=== PATIENT | male | born 1950 | race Caucasian/White ===

== ENCOUNTER 2020-08-22 14:55 | Emergency (ER) | payer OTHER, SELFPAY ==
--- NOTE | 2020-08-22 15:40 | RAD ---
EXAM: 3 views of the left foot HISTORY: Left foot pain and bruising COMPARISON: 03/19/2014 FINDINGS: 3 views of the left foot shows a spiral fracture of the distal fifth metatarsal. Mild overl siri soft tissue swelling is seen. No degenerative changes are present. IMPRESSION: Left fifth metatarsal fracture
== END 2020-08-22 16:30 | disposition home or self-care (01) ==
LOC: ERS 14:55
DX: S92.355A Nondisplaced fracture of fifth metatarsal bone, left foot, initial encounter for closed fracture (principal); I10 Essential (primary) hypertension

== ENCOUNTER 2021-02-08 09:16 | Inpatient (IN) | payer MEDICARE, BC ==
[2021-02-08] MEDS ORDERED: Labetalol HCl 100 MG/20 ML VIAL ONE (09:58)
[2021-02-08] MEDS ORDERED: Aspirin Chewable 81 MG TAB ONE (09:58)
[2021-02-08 10:11] LABS: #Basophils 0.1 thou/uL (0.0-0.2); #Eosinphils 0.2 thou/uL (0.0-0.7); #Lymphocytes 2.1 thou/uL (1.20-3.40); #Monocytes 0.4 thou/uL (0.11-0.59); #Neutrophils 2.8 thou/uL (1.40-6.50); %Eosinophils 4.3 % (0.0-10.0); %Lymphocytes 37.9 % (21.0-51.0); %Monocytes 7.5 % (0.0-10.0); %Neutrophils 49.4 % (42.0-75.0); Hemoglobin 14.7 g/dL (14.0-18.0); Mean Corpuscular HGB CONC 34.1 g/dL (32.0-36.0); Mean Corpuscular Hemoglobin 35.1 pg (27.0-31.0); Mean Platelet Volume 8.8 fL (7.4-10.4); Platelet Count 175 thou/uL (130-400); RBC Distribution Width 12.6 % (11.5-14.5); Red Blood Cell (RBC) Count 4.19 mill/uL (4.70-6.10); White Blood Cell (WBC) Count 5.7 thou/uL (4.8-10.8)
[2021-02-08 10:16] LABS: PTT 30.5 sec (22.9-36.1); Prothrombin Time 13.4 sec (12.0-14.7)
[2021-02-08 10:41] LABS: ALT (SGPT) 9 U/L (8-55); AST (SGOT) 24 U/L (5-34); Albumin 3.9 g/dL (3.4-4.8); Alkaline Phosphatase 105 U/L (40-110); Anion Gap 19 mmol/L (10-20); BUN (Urea Nitrogen) 21 mg/dL (8.4-25.7); Bilirubin, Total 0.5 mg/dL (0.2-1.2); Calc. Creatinine Clearance 0 mL/min (70-130); Carbon Dioxide 18 mmol/L (23-31); Chloride 106 mmol/L (98-107); Globulin 3.2 g/dL (2.4-3.5); Glucose 75 mg/dL (80-115); Magnesium 2.1 mg/dL (1.6-2.6); Potassium 5.2 mmol/L (3.5-5.1); Protein, Total 7.1 g/dL (5.8-8.1); Sodium 138 mmol/L (136-145)
[2021-02-08] MEDS ORDERED: Ondansetron PF 4 MG/2 ML Vial IVP PRN (11:19)
[2021-02-08] MEDS ORDERED: Acetaminophen 325 MG TAB PO PRN (11:19)
[2021-02-08] MEDS ORDERED: Iopamidol-370 76% 500 ML 1 ML ONE (11:43)
[2021-02-08 13:00] VITALS: BMI 25.0
[2021-02-08 13:58] LABS: Troponin I 0.024 ng/mL (< 0.028)
[2021-02-08 15:42] LABS: Troponin I 0.017 ng/mL (< 0.028)
[2021-02-08] MEDS ORDERED: Melatonin 3 MG TAB PO PRN (22:44)
[2021-02-08] MEDS: Famotidine 20 MG TAB PO SCH (22:56)
[2021-02-08] MEDS: Atorvastatin Calcium 40 MG TAB PO SCH (22:56)
[2021-02-09 05:39] LABS: #Eosinphils 0.2 thou/uL (0.0-0.7); #Lymphocytes 1.6 thou/uL (1.20-3.40); #Monocytes 0.5 thou/uL (0.11-0.59); #Neutrophils 4.4 thou/uL (1.40-6.50); %Basophils 0.7 % (0.0-1.0); %Eosinophils 2.7 % (0.0-10.0); %Lymphocytes 23.4 % (21.0-51.0); %Monocytes 7.3 % (0.0-10.0); %Neutrophils 65.8 % (42.0-75.0); Hemoglobin 14.2 g/dL (14.0-18.0); Mean Corpuscular HGB CONC 33.7 g/dL (32.0-36.0); Mean Corpuscular Hemoglobin 34.5 pg (27.0-31.0); Platelet Count 151 thou/uL (130-400); RBC Distribution Width 12.5 % (11.5-14.5); Red Blood Cell (RBC) Count 4.11 mill/uL (4.70-6.10); White Blood Cell (WBC) Count 6.6 thou/uL (4.8-10.8)
[2021-02-09 06:06] LABS: ALT (SGPT) 9 U/L (8-55); AST (SGOT) 15 U/L (5-34); Albumin 3.8 g/dL (3.4-4.8); Alkaline Phosphatase 104 U/L (40-110); Anion Gap 15 mmol/L (10-20); BUN (Urea Nitrogen) 19 mg/dL (8.4-25.7); Bilirubin, Total 0.7 mg/dL (0.2-1.2); Calc. Creatinine Clearance 38 mL/min (70-130); Calcium 9.4 mg/dL (7.8-10.44); Carbon Dioxide 23 mmol/L (23-31); Cardiac Risk 2.9 (Less than 4.5); Chloride 105 mmol/L (98-107); Cholesterol 153 mg/dl (< 200 Desired); Globulin 2.5 g/dL (2.4-3.5); Glucose 93 mg/dL (80-115); HDL Cholesterol 52 mg/dL (>60 Neg Risk); LDL Cholesterol, Calculated 80 mg/dL; Potassium 4.2 mmol/L (3.5-5.1); Protein, Total 6.3 g/dL (5.8-8.1); Sodium 139 mmol/L (136-145); Triglycerides 104 mg/dL (Less than 150)
[2021-02-09] MEDS: Aspirin 81 mg Enteric Coated Tablet PO SCH (08:27)
[2021-02-09] MEDS: Famotidine 20 MG TAB PO SCH ×2 (08:29→21:04)
[2021-02-09] MEDS: Labetalol HCl 100 MG/20 ML VIAL SLOW IVP PRN ×3 (08:32→13:43)
[2021-02-09] MEDS: Enoxaparin Sodium 40 MG/0.4 ML SYRINGE SC SCH (08:35)
[2021-02-09] MEDS ORDERED: FLU VACC QS2020-21(65YR UP)/PF 240 MCG/0.7 ML SYRINGE IM ONE (09:00)
[2021-02-09] MEDS ORDERED: Enoxaparin Sodium 30 MG/0.3 ML SYRINGE SC SCH (09:30)
[2021-02-09] MEDS: hydrALAZINE 20 MG/ML VIAL SLOW IVP PRN (09:53)
[2021-02-09 09:59] LABS: SARS-CoV-2 PCR by NAA Not Detected (NotDetected)
[2021-02-09 13:14] LABS: Bacteria/HPF None Seen HPF (None Seen); Bilirubin Negative (Negative); Blood, Urine Trace (Negative); Clarity Clear (Clear); Glucose, Urine (Dipstick) Normal (Negative); Ketone, Urine Trace mg/dL (Negative); Leukocyte Negative Leu/uL (Negative); Nitrite Negative (Negative); Protein, Urine (Dipstick) 30 mg/dL (Neg-Trace); RBC/HPF 0-3 HPF (0-3); Specific Gravity, Urine 1.026 (1.002-1.036); Squamous Epithelial 0-3 HPF (0-3); Urobilinogen Normal mg/dL (Less than 2); WBC/HPF 0-3 HPF (0-3); pH, Urine 6.5 (5.0-9.0)
[2021-02-09 13:33] LABS: Urine Culture Reflex No No
[2021-02-09] MEDS ORDERED: hydrALAZINE 25 MG TAB PO SCH (16:15)
[2021-02-09] MEDS: Atorvastatin Calcium 40 MG TAB PO SCH (21:03)
[2021-02-09] MEDS: hydrALAZINE 25 MG TAB PO SCH (21:03)
[2021-02-10] MEDS: Labetalol HCl 100 MG/20 ML VIAL SLOW IVP PRN ×5 (02:55→21:16)
[2021-02-10] MEDS: Famotidine 20 MG TAB PO SCH ×2 (08:07→21:14)
[2021-02-10] MEDS: hydrALAZINE 25 MG TAB PO SCH ×3 (08:08→21:15)
[2021-02-10] MEDS ORDERED: Lidocaine 1% w/Epinephrine 1:100K 20 ML VIAL ONE (08:49)
[2021-02-10] MEDS: Aspirin 81 mg Enteric Coated Tablet PO SCH (09:57)
[2021-02-10] MEDS: HYDROcodone/Acetaminophen 5/325 mg Tablet PO PRN (12:32)
[2021-02-10] MEDS: Enoxaparin Sodium 40 MG/0.4 ML SYRINGE SC SCH (17:08)
[2021-02-10] MEDS ORDERED: Enoxaparin Sodium 40 MG/0.4 ML SYRINGE SC SCH (19:45)
[2021-02-10] MEDS ORDERED: Enoxaparin Sodium 80 MG/0.8 ML SYRINGE SC SCH ×2 (20:00→21:00)
[2021-02-10] MEDS: Melatonin 3 MG TAB PO PRN (21:15)
[2021-02-10] MEDS: Atorvastatin Calcium 40 MG TAB PO SCH (21:15)
[2021-02-11] MEDS: Enoxaparin Sodium 80 MG/0.8 ML SYRINGE SC SCH ×2 (09:02→20:28)
[2021-02-11] MEDS: Famotidine 20 MG TAB PO SCH ×2 (09:02→20:27)
[2021-02-11] MEDS: hydrALAZINE 25 MG TAB PO SCH ×3 (09:02→20:27)
[2021-02-11] MEDS: Aspirin 81 mg Enteric Coated Tablet PO SCH (09:02)
[2021-02-11] MEDS ORDERED: hydrALAZINE 25 MG TAB PO SCH (10:00)
[2021-02-11] MEDS: Bisacodyl 5 MG TAB PO PRN (15:17)
[2021-02-11 18:59] LABS: Anion Gap 18 mmol/L (10-20); BUN (Urea Nitrogen) 28 mg/dL (8.4-25.7); Calc. Creatinine Clearance 31 mL/min (70-130); Calcium 9.6 mg/dL (7.8-10.44); Carbon Dioxide 22 mmol/L (23-31); Chloride 105 mmol/L (98-107); Glucose 155 mg/dL (80-115); Potassium 4.7 mmol/L (3.5-5.1); Sodium 140 mmol/L (136-145)
[2021-02-11] MEDS: Atorvastatin Calcium 40 MG TAB PO SCH (20:27)
[2021-02-11] MEDS: Melatonin 3 MG TAB PO PRN (20:27)
[2021-02-11] MEDS: HYDROcodone/Acetaminophen 5/325 mg Tablet PO PRN (20:28)
[2021-02-11] MEDS: Labetalol HCl 100 MG/20 ML VIAL SLOW IVP PRN (23:54)
[2021-02-11] MEDS ORDERED: Labetalol HCl 100 MG/20 ML VIAL ONE (23:58)
[2021-02-12] MEDS: HYDROcodone/Acetaminophen 5/325 mg Tablet PO PRN ×2 (06:12→20:39)
[2021-02-12] MEDS: hydrALAZINE 20 MG/ML VIAL SLOW IVP PRN (06:13)
[2021-02-12] MEDS ORDERED: Lisinopril 5 MG TAB PO SCH ×2 (09:00→10:30)
[2021-02-12] MEDS: Aspirin 81 mg Enteric Coated Tablet PO SCH (09:11)
[2021-02-12] MEDS: hydrALAZINE 25 MG TAB PO SCH ×3 (09:12→20:37)
[2021-02-12] MEDS: Famotidine 20 MG TAB PO SCH (09:14)
[2021-02-12] MEDS: Bisacodyl 5 MG TAB PO PRN (09:15)
[2021-02-12] MEDS: Enoxaparin Sodium 80 MG/0.8 ML SYRINGE SC SCH (09:17)
[2021-02-12] MEDS ORDERED: Lisinopril 10 MG TAB PO SCH ×2 (09:45→10:06)
[2021-02-12] MEDS: Cholecalciferol 1,000 UNITS (25 MCG) TAB PO SCH (10:41)
[2021-02-12 16:42] LABS: Anion Gap 14 mmol/L (10-20); BUN (Urea Nitrogen) 32 mg/dL (8.4-25.7); Calc. Creatinine Clearance 28 mL/min (70-130); Calcium 9.6 mg/dL (7.8-10.44); Carbon Dioxide 28 mmol/L (23-31); Chloride 101 mmol/L (98-107); Glucose 92 mg/dL (80-115); Potassium 4.5 mmol/L (3.5-5.1); Sodium 138 mmol/L (136-145)
[2021-02-12] MEDS: Apixaban 5 MG TAB PO SCH (20:38)
[2021-02-12] MEDS: Melatonin 3 MG TAB PO PRN (20:38)
[2021-02-12] MEDS: Atorvastatin Calcium 40 MG TAB PO SCH (20:39)
[2021-02-13] MEDS ORDERED: Lisinopril 10 MG TAB PO SCH (09:00)
[2021-02-13] MEDS ORDERED: Enoxaparin Sodium 80 MG/0.8 ML SYRINGE SC SCH (09:00)
[2021-02-13] MEDS: Apixaban 5 MG TAB PO SCH ×2 (09:12→20:41)
[2021-02-13] MEDS: Famotidine 20 MG TAB PO SCH (09:13)
[2021-02-13] MEDS: Cholecalciferol 1,000 UNITS (25 MCG) TAB PO SCH (09:13)
[2021-02-13] MEDS: hydrALAZINE 25 MG TAB PO SCH ×3 (09:13→20:42)
[2021-02-13] MEDS: Aspirin 81 mg Enteric Coated Tablet PO SCH (09:29)
[2021-02-13 10:53] LABS: Hemoglobin 15.4 g/dL (14.0-18.0); Mean Corpuscular HGB CONC 33.5 g/dL (32.0-36.0); Mean Corpuscular Hemoglobin 35.1 pg (27.0-31.0); Mean Platelet Volume 8.5 fL (7.4-10.4); Platelet Count 139 thou/uL (130-400); RBC Distribution Width 13.2 % (11.5-14.5); Red Blood Cell (RBC) Count 4.38 mill/uL (4.70-6.10)
[2021-02-13 11:06] LABS: Anion Gap 16 mmol/L (10-20); BUN (Urea Nitrogen) 37 mg/dL (8.4-25.7); Calc. Creatinine Clearance 23 mL/min (70-130); Calcium 9.6 mg/dL (7.8-10.44); Carbon Dioxide 23 mmol/L (23-31); Chloride 103 mmol/L (98-107); Glucose 112 mg/dL (80-115); Potassium 4.4 mmol/L (3.5-5.1); Sodium 138 mmol/L (136-145)
[2021-02-13 11:32] LABS: Thyroid Stimulating Hormone 1.9977 uIU/mL (0.35-4.94)
[2021-02-13] MEDS: Sodium Chloride 0.9% 1,000 ML IV SCH (15:50)
[2021-02-13] MEDS: Atorvastatin Calcium 40 MG TAB PO SCH (20:41)
[2021-02-13] MEDS: Melatonin 3 MG TAB PO PRN (20:42)
[2021-02-13] MEDS: HYDROcodone/Acetaminophen 5/325 mg Tablet PO PRN (20:42)
[2021-02-13] MEDS ORDERED: Lorazepam 2 MG/ML VIAL SLOW IVP SCH (21:45)
[2021-02-14] MEDS: Sodium Chloride 0.9% 1,000 ML IV SCH ×4 (02:50→23:31)
[2021-02-14 05:56] LABS: Anion Gap 13 mmol/L (10-20); BUN (Urea Nitrogen) 40 mg/dL (8.4-25.7); Calc. Creatinine Clearance 22 mL/min (70-130); Calcium 8.9 mg/dL (7.8-10.44); Carbon Dioxide 24 mmol/L (23-31); Chloride 106 mmol/L (98-107); Glucose 99 mg/dL (80-115); Potassium 4.1 mmol/L (3.5-5.1); Sodium 139 mmol/L (136-145)
[2021-02-14] MEDS: Cholecalciferol 1,000 UNITS (25 MCG) TAB PO SCH (08:18)
[2021-02-14] MEDS: Amlodipine 10 MG TAB PO SCH (08:18)
[2021-02-14] MEDS: Aspirin 81 mg Enteric Coated Tablet PO SCH (08:18)
[2021-02-14] MEDS: Famotidine 20 MG TAB PO SCH (08:18)
[2021-02-14] MEDS: hydrALAZINE 25 MG TAB PO SCH ×3 (08:18→20:36)
[2021-02-14] MEDS: Apixaban 5 MG TAB PO SCH ×2 (08:18→20:37)
[2021-02-14] MEDS ORDERED: Folic Acid 1 MG TAB PO SCH (17:00)
[2021-02-14 18:47] LABS: Creatinine, Urine 70.57 mg/dL (63-166)
[2021-02-14] MEDS: Atorvastatin Calcium 40 MG TAB PO SCH (20:37)
[2021-02-14] MEDS: Melatonin 3 MG TAB PO PRN (20:37)
[2021-02-15 05:07] LABS: Eosinophils 2 % (0-10); Hemoglobin 13.4 g/dL (14.0-18.0); Lymphocytes 28 % (21-51); MDiff Complete? YES; Mean Corpuscular HGB CONC 31.7 g/dL (32.0-36.0); Mean Corpuscular Hemoglobin 33.1 pg (27.0-31.0); Mean Platelet Volume 8.4 fL (7.4-10.4); Monocytes 16 % (0-10); Neutrophil 54 % (42-75); Platelet Count 149 thou/uL (130-400); Platelet Morphology Comment Appears Adequate; RBC Distribution Width 12.9 % (11.5-14.5); Red Blood Cell (RBC) Count 4.05 mill/uL (4.70-6.10); White Blood Cell (WBC) Count 5.9 thou/uL (4.8-10.8)
[2021-02-15 05:18] LABS: Anion Gap 14 mmol/L (10-20); BUN (Urea Nitrogen) 30 mg/dL (8.4-25.7); Calc. Creatinine Clearance 32 mL/min (70-130); Calcium 8.5 mg/dL (7.8-10.44); Carbon Dioxide 21 mmol/L (23-31); Chloride 111 mmol/L (98-107); Glucose 78 mg/dL (80-115); Potassium 4.6 mmol/L (3.5-5.1); Sodium 141 mmol/L (136-145)
[2021-02-15] MEDS: Sodium Chloride 0.9% 1,000 ML IV SCH (08:01)
[2021-02-15] MEDS: Aspirin 81 mg Enteric Coated Tablet PO SCH (10:17)
[2021-02-15] MEDS: Famotidine 20 MG TAB PO SCH (10:18)
[2021-02-15] MEDS: Amlodipine 10 MG TAB PO SCH (10:18)
[2021-02-15] MEDS: Folic Acid 1 MG TAB PO SCH (10:18)
[2021-02-15] MEDS: Cholecalciferol 1,000 UNITS (25 MCG) TAB PO SCH (10:18)
[2021-02-15] MEDS: Bisacodyl 5 MG TAB PO PRN (10:18)
[2021-02-15] MEDS: Apixaban 5 MG TAB PO SCH ×2 (10:19→21:34)
[2021-02-15] MEDS: hydrALAZINE 25 MG TAB PO SCH ×3 (10:20→21:34)
[2021-02-15] MEDS ORDERED: Sodium Chloride 0.9% 1,000 ML IV SCH (11:21)
[2021-02-15] MEDS ORDERED: Bisacodyl 10 MG SUPP PR PRN (17:41)
[2021-02-15] MEDS ORDERED: Fleet Enema 133 ML BOT PR SCH (17:45)
[2021-02-15] MEDS: cloNIDine 0.1 MG TAB PO SCH (21:33)
[2021-02-15] MEDS: Melatonin 3 MG TAB PO PRN (21:33)
[2021-02-15] MEDS: Atorvastatin Calcium 40 MG TAB PO SCH (21:34)
[2021-02-16 05:00] LABS: #Basophils 0.1 thou/uL (0.0-0.2); #Eosinphils 0.3 thou/uL (0.0-0.7); #Lymphocytes 1.5 thou/uL (1.20-3.40); #Monocytes 0.6 thou/uL (0.11-0.59); #Neutrophils 3.1 thou/uL (1.40-6.50); %Eosinophils 4.6 % (0.0-10.0); %Lymphocytes 27.5 % (21.0-51.0); %Monocytes 10.2 % (0.0-10.0); %Neutrophils 56.7 % (42.0-75.0); Hemoglobin 13.5 g/dL (14.0-18.0); Mean Corpuscular HGB CONC 33.7 g/dL (32.0-36.0); Mean Corpuscular Hemoglobin 35.1 pg (27.0-31.0); Mean Platelet Volume 8.1 fL (7.4-10.4); Platelet Count 150 thou/uL (130-400); RBC Distribution Width 12.6 % (11.5-14.5); Red Blood Cell (RBC) Count 3.85 mill/uL (4.70-6.10); White Blood Cell (WBC) Count 5.5 thou/uL (4.8-10.8)
[2021-02-16 05:28] LABS: Anion Gap 11 mmol/L (10-20); BUN (Urea Nitrogen) 28 mg/dL (8.4-25.7); Calc. Creatinine Clearance 37 mL/min (70-130); Calcium 8.7 mg/dL (7.8-10.44); Carbon Dioxide 22 mmol/L (23-31); Chloride 110 mmol/L (98-107); Glucose 90 mg/dL (80-115); Potassium 3.9 mmol/L (3.5-5.1); Sodium 139 mmol/L (136-145)
[2021-02-16] MEDS: hydrALAZINE 25 MG TAB PO SCH ×3 (09:54→21:48)
[2021-02-16] MEDS: Apixaban 5 MG TAB PO SCH ×2 (09:54→21:45)
[2021-02-16] MEDS: Folic Acid 1 MG TAB PO SCH (09:55)
[2021-02-16] MEDS: cloNIDine 0.1 MG TAB PO SCH ×2 (09:55→21:47)
[2021-02-16] MEDS: Famotidine 20 MG TAB PO SCH (09:55)
[2021-02-16] MEDS: Cholecalciferol 1,000 UNITS (25 MCG) TAB PO SCH (09:55)
[2021-02-16] MEDS: Aspirin 81 mg Enteric Coated Tablet PO SCH (09:56)
[2021-02-16] MEDS: Amlodipine 10 MG TAB PO SCH (09:57)
[2021-02-16] MEDS: Melatonin 3 MG TAB PO PRN (21:45)
[2021-02-16] MEDS: Atorvastatin Calcium 40 MG TAB PO SCH (21:45)
[2021-02-17 05:13] LABS: Anion Gap 14 mmol/L (10-20); BUN (Urea Nitrogen) 30 mg/dL (8.4-25.7); Calc. Creatinine Clearance 35 mL/min (70-130); Calcium 8.5 mg/dL (7.8-10.44); Carbon Dioxide 21 mmol/L (23-31); Chloride 109 mmol/L (98-107); Glucose 82 mg/dL (80-115); Potassium 4.1 mmol/L (3.5-5.1); Sodium 140 mmol/L (136-145)
[2021-02-17] MEDS: cloNIDine 0.1 MG TAB PO SCH (09:36)
[2021-02-17] MEDS: Apixaban 5 MG TAB PO SCH (09:36)
[2021-02-17] MEDS: hydrALAZINE 25 MG TAB PO SCH ×2 (09:36→15:03)
[2021-02-17] MEDS: Amlodipine 10 MG TAB PO SCH (09:36)
[2021-02-17] MEDS: Aspirin 81 mg Enteric Coated Tablet PO SCH (09:38)
[2021-02-17] MEDS: Folic Acid 1 MG TAB PO SCH (09:38)
[2021-02-17] MEDS: Famotidine 20 MG TAB PO SCH (09:38)
[2021-02-17] MEDS: Cholecalciferol 1,000 UNITS (25 MCG) TAB PO SCH (09:38)
[2021-02-17 15:48] VITALS: TEMP 98.5
[2021-02-17 16:29] VITALS: BP 155/80
== END 2021-02-17 17:52 | DRG 40 ==
LOC: ERS 09:16 → 2SE 11:08
PROVIDERS: ADMIT Family Medicine; ATTEND Internal Medicine
PROC: 0JH632Z Insertion of Monitoring Device into Chest Subcutaneous Tissue and Fascia, Percutaneous Approach (ICD-10-PCS; principal; 2021-02-10)
PROC: 4A12X4Z Monitoring of Cardiac Electrical Activity, External Approach (ICD-10-PCS; 2021-02-10)
DX: I63.81 Other cerebral infarction due to occlusion or stenosis of small artery (principal); G93.41 Metabolic encephalopathy; I16.1 Hypertensive emergency; G81.91 Hemiplegia, unspecified affecting right dominant side; N17.9 Acute kidney failure, unspecified; Z23 Encounter for immunization; Z20.822 Contact with and (suspected) exposure to COVID-19; R29.707 NIHSS score 7; E78.5 Hyperlipidemia, unspecified; R47.01 Aphasia; I65.21 Occlusion and stenosis of right carotid artery; I16.0 Hypertensive urgency; N18.30 Chronic kidney disease, stage 3 unspecified; I12.9 Hypertensive chronic kidney disease with stage 1 through stage 4 chronic kidney disease, or unspecified chronic kidney disease; G93.89 Other specified disorders of brain; M19.90 Unspecified osteoarthritis, unspecified site; I70.202 Unspecified atherosclerosis of native arteries of extremities, left leg; E55.9 Vitamin D deficiency, unspecified; Z79.899 Other long term (current) drug therapy; Z79.82 Long term (current) use of aspirin; Z94.7 Corneal transplant status
CPT/HCPCS: 36415; 36416; 70450; 70496; 70498; 70551; 71045; 76770; 80048; 80053; 80061; 81001; 82306; 82570; 82607; 82746; 83735; 84300; 84443; 84484; 85007; 85025; 85027; 85060; 85610; 85730; 87635; 90471; 90662; 93005; 93306; 95712; 95819; 95957; 96374; G0008; J0360; J1650; J2060; Q9967; U0003; U0005

== ENCOUNTER 2021-02-20 10:25 | Inpatient (IN) | payer MEDICARE, BC ==
[2021-02-20 10:44] LABS: #Basophils 0.1 thou/uL (0.0-0.2); #Eosinphils 0.2 thou/uL (0.0-0.7); #Lymphocytes 1.8 thou/uL (1.20-3.40); #Monocytes 0.7 thou/uL (0.11-0.59); #Neutrophils 4.2 thou/uL (1.40-6.50); %Basophils 0.9 % (0.0-1.0); %Eosinophils 3.5 % (0.0-10.0); %Lymphocytes 25.8 % (21.0-51.0); %Monocytes 9.5 % (0.0-10.0); %Neutrophils 60.2 % (42.0-75.0); Hemoglobin 14.5 g/dL (14.0-18.0); Mean Corpuscular HGB CONC 33.2 g/dL (32.0-36.0); Mean Corpuscular Hemoglobin 33.9 pg (27.0-31.0); Mean Platelet Volume 7.9 fL (7.4-10.4); Platelet Count 238 thou/uL (130-400); RBC Distribution Width 12.6 % (11.5-14.5); Red Blood Cell (RBC) Count 4.27 mill/uL (4.70-6.10); White Blood Cell (WBC) Count 6.9 thou/uL (4.8-10.8)
[2021-02-20 10:52] LABS: INR-International Normal Ratio 1.3; PTT 37.6 sec (22.9-36.1); Prothrombin Time 15.9 sec (12.0-14.7)
[2021-02-20 11:03] LABS: ALT (SGPT) 15 U/L (8-55); AST (SGOT) 19 U/L (5-34); Albumin 3.8 g/dL (3.4-4.8); Alkaline Phosphatase 111 U/L (40-110); Anion Gap 12 mmol/L (10-20); BUN (Urea Nitrogen) 32 mg/dL (8.4-25.7); Bilirubin, Total 0.5 mg/dL (0.2-1.2); CK (CPK) 69 U/L (30-200); Calc. Creatinine Clearance 0 mL/min (70-130); Calcium 9.6 mg/dL (7.8-10.44); Carbon Dioxide 26 mmol/L (23-31); Chloride 104 mmol/L (98-107); Globulin 2.8 g/dL (2.4-3.5); Glucose 99 mg/dL (80-115); Potassium 4.4 mmol/L (3.5-5.1); Protein, Total 6.6 g/dL (5.8-8.1); Sodium 138 mmol/L (136-145)
[2021-02-20] MEDS ORDERED: Iopamidol-370 76% 500 ML 1 ML ONE (14:22)
[2021-02-20] MEDS ORDERED: Aspirin 300 MG Suppository ONE (14:25)
[2021-02-20] MEDS: Sodium Chloride 0.9% 1,000 ML IV SCH ×2 (17:54→22:42)
[2021-02-20] MEDS ORDERED: Non-Formulary Item 1 EACH (Rosuvastatin Calcium [Crestor] 40 MG Tablet) PO SCH (21:00)
[2021-02-20 21:52] VITALS: BMI 21.0
[2021-02-20] MEDS: Apixaban 5 MG TAB PO SCH (22:09)
[2021-02-20] MEDS: Rosuvastatin 20 MG TAB PO SCH (22:10)
[2021-02-20 22:37] LABS: SARS-CoV-2 PCR by NAA Not Detected (NotDetected)
[2021-02-21 05:45] LABS: #Basophils 0.1 thou/uL (0.0-0.2); #Eosinphils 0.3 thou/uL (0.0-0.7); #Lymphocytes 1.6 thou/uL (1.20-3.40); #Monocytes 0.7 thou/uL (0.11-0.59); #Neutrophils 4.8 thou/uL (1.40-6.50); %Basophils 1.2 % (0.0-1.0); %Eosinophils 3.9 % (0.0-10.0); %Lymphocytes 21.6 % (21.0-51.0); %Monocytes 9.2 % (0.0-10.0); %Neutrophils 64.2 % (42.0-75.0); Mean Corpuscular HGB CONC 33.9 g/dL (32.0-36.0); Mean Corpuscular Hemoglobin 34.3 pg (27.0-31.0); Mean Platelet Volume 8.1 fL (7.4-10.4); Platelet Count 250 thou/uL (130-400); RBC Distribution Width 12.6 % (11.5-14.5); Red Blood Cell (RBC) Count 4.38 mill/uL (4.70-6.10); White Blood Cell (WBC) Count 7.4 thou/uL (4.8-10.8)
[2021-02-21 06:02] LABS: Anion Gap 16 mmol/L (10-20); BUN (Urea Nitrogen) 32 mg/dL (8.4-25.7); Calc. Creatinine Clearance 32 mL/min (70-130); Calcium 9.4 mg/dL (7.8-10.44); Carbon Dioxide 21 mmol/L (23-31); Cardiac Risk 4.9 (Less than 4.5); Chloride 106 mmol/L (98-107); Cholesterol 136 mg/dl (< 200 Desired); Glucose 74 mg/dL (80-115); HDL Cholesterol 28 mg/dL (>60 Neg Risk); LDL Cholesterol, Calculated 81 mg/dL; Sodium 139 mmol/L (136-145); Triglycerides 134 mg/dL (Less than 150)
[2021-02-21] MEDS ORDERED: Aspirin 81 mg Enteric Coated Tablet PO SCH ×2 (09:00)
[2021-02-21] MEDS: Cholecalciferol 1,000 UNITS (25 MCG) TAB PO SCH (12:36)
[2021-02-21] MEDS: Apixaban 5 MG TAB PO SCH (12:36)
[2021-02-21] MEDS: Cyanocobalamin (Vitamin B-12) 1,000 MCG TAB PO SCH (12:36)
[2021-02-21] MEDS: hydrALAZINE 25 MG TAB PO SCH ×2 (14:52→19:10)
[2021-02-21] MEDS: hydrALAZINE 20 MG/ML VIAL SLOW IVP PRN ×2 (15:14→20:33)
[2021-02-21] MEDS ORDERED: Sodium Chloride 0.9% 1,000 ML IV SCH ×2 (15:37→19:41)
[2021-02-21] MEDS: Sodium Chloride 0.9% 1,000 ML IV SCH (15:43)
[2021-02-21] MEDS ORDERED: Aspirin 300 MG Suppository PR SCH (16:15)
[2021-02-21] MEDS: Labetalol HCl 100 MG/20 ML VIAL SLOW IVP PRN (18:17)
[2021-02-21] MEDS: Rosuvastatin 20 MG TAB PO SCH (19:10)
[2021-02-21] MEDS ORDERED: Dextrose 5 %-0.45 % NaCl 1,000 ML IV SCH (23:45)
[2021-02-21] MEDS ORDERED: Labetalol HCl 100 MG/20 ML VIAL SLOW IVP SCH (23:45)
[2021-02-22] MEDS: hydrALAZINE 20 MG/ML VIAL SLOW IVP PRN (02:03)
[2021-02-22] MEDS: Labetalol HCl 100 MG/20 ML VIAL SLOW IVP PRN ×2 (04:14→12:02)
[2021-02-22 05:05] LABS: #Eosinphils 0.2 thou/uL (0.0-0.7); #Lymphocytes 1.2 thou/uL (1.20-3.40); #Monocytes 0.8 thou/uL (0.11-0.59); #Neutrophils 5.6 thou/uL (1.40-6.50); %Basophils 0.6 % (0.0-1.0); %Eosinophils 2.4 % (0.0-10.0); %Lymphocytes 15.8 % (21.0-51.0); %Monocytes 9.6 % (0.0-10.0); %Neutrophils 71.6 % (42.0-75.0); Hemoglobin 15.5 g/dL (14.0-18.0); Mean Corpuscular HGB CONC 34.5 g/dL (32.0-36.0); Mean Corpuscular Hemoglobin 34.8 pg (27.0-31.0); Mean Platelet Volume 7.6 fL (7.4-10.4); Platelet Count 252 thou/uL (130-400); RBC Distribution Width 12.5 % (11.5-14.5); Red Blood Cell (RBC) Count 4.44 mill/uL (4.70-6.10); White Blood Cell (WBC) Count 7.9 thou/uL (4.8-10.8)
[2021-02-22 05:11] LABS: INR-International Normal Ratio 1.2; PTT 37.4 sec (22.9-36.1)
[2021-02-22 05:15] LABS: Anion Gap 20 mmol/L (10-20); BUN (Urea Nitrogen) 36 mg/dL (8.4-25.7); Calc. Creatinine Clearance 26 mL/min (70-130); Calcium 9.4 mg/dL (7.8-10.44); Carbon Dioxide 16 mmol/L (23-31); Chloride 109 mmol/L (98-107); Glucose 123 mg/dL (80-115); Potassium 4.2 mmol/L (3.5-5.1); Sodium 141 mmol/L (136-145)
[2021-02-22] MEDS: Aspirin 300 MG Suppository PR SCH (08:35)
[2021-02-22] MEDS: Cyanocobalamin (Vitamin B-12) 1,000 MCG TAB PO SCH ×3 (09:28→09:43)
[2021-02-22] MEDS: Cholecalciferol 1,000 UNITS (25 MCG) TAB PO SCH ×3 (09:28→09:42)
[2021-02-22] MEDS: hydrALAZINE 25 MG TAB PO SCH ×3 (09:29→09:41)
[2021-02-22] MEDS ORDERED: D5 1/2 NS w/40 mEq KCL 1,000 ML IV SCH (12:45)
[2021-02-22] MEDS: hydrALAZINE 20 MG/ML VIAL SLOW IVP SCH ×3 (13:27→20:43)
[2021-02-22] MEDS: D5 1/2 NS w/40 mEq KCL 1,000 ML IV SCH (15:25)
[2021-02-22] MEDS: Rosuvastatin 20 MG TAB PO SCH (20:44)
[2021-02-23] MEDS: Labetalol HCl 100 MG/20 ML VIAL SLOW IVP PRN ×2 (00:22→18:22)
[2021-02-23] MEDS: hydrALAZINE 20 MG/ML VIAL SLOW IVP SCH ×6 (00:48→20:35)
[2021-02-23] MEDS: D5 1/2 NS w/40 mEq KCL 1,000 ML IV SCH (03:41)
[2021-02-23 04:59] LABS: #Basophils 0.1 thou/uL (0.0-0.2); #Eosinphils 0.2 thou/uL (0.0-0.7); #Lymphocytes 1.2 thou/uL (1.20-3.40); #Monocytes 0.8 thou/uL (0.11-0.59); #Neutrophils 5.8 thou/uL (1.40-6.50); %Basophils 0.7 % (0.0-1.0); %Eosinophils 2.1 % (0.0-10.0); %Lymphocytes 14.6 % (21.0-51.0); %Monocytes 9.9 % (0.0-10.0); %Neutrophils 72.7 % (42.0-75.0); Hemoglobin 13.6 g/dL (14.0-18.0); Mean Corpuscular HGB CONC 32.5 g/dL (32.0-36.0); Mean Corpuscular Hemoglobin 33.1 pg (27.0-31.0); Platelet Count 250 thou/uL (130-400); RBC Distribution Width 12.8 % (11.5-14.5); Red Blood Cell (RBC) Count 4.12 mill/uL (4.70-6.10)
[2021-02-23 06:51] LABS: Anion Gap 14 mmol/L (10-20); BUN (Urea Nitrogen) 27 mg/dL (8.4-25.7); Calc. Creatinine Clearance 29 mL/min (70-130); Calcium 9.3 mg/dL (7.8-10.44); Carbon Dioxide 20 mmol/L (23-31); Chloride 112 mmol/L (98-107); Glucose 112 mg/dL (80-115); Potassium 4.2 mmol/L (3.5-5.1); Sodium 142 mmol/L (136-145)
[2021-02-23] MEDS: Cyanocobalamin (Vitamin B-12) 1,000 MCG TAB PO SCH (08:14)
[2021-02-23] MEDS: Cholecalciferol 1,000 UNITS (25 MCG) TAB PO SCH (08:14)
[2021-02-23] MEDS: Aspirin 300 MG Suppository PR SCH (08:43)
[2021-02-23] MEDS ORDERED: Sodium Chloride 0.9% 1,000 ML IV SCH (08:45)
[2021-02-23 09:35] LABS: Bilirubin Negative (Negative); Blood, Urine Negative (Negative); Clarity Clear (Clear); Glucose, Urine (Dipstick) Normal (Negative); Ketone, Urine Negative (Negative); Leukocyte Negative Leu/uL (Negative); Nitrite Negative (Negative); Protein, Urine (Dipstick) 10 mg/dL (Neg-Trace); Specific Gravity, Urine 1.015 (1.002-1.036); Urobilinogen Normal mg/dL (Less than 2); pH, Urine 5.5 (5.0-9.0)
[2021-02-23 09:53] LABS: Creatinine, Urine 113.79 mg/dL (63-166)
[2021-02-23] MEDS ORDERED: PROPOFOL 200 MG/20 ML VIAL ONE (12:36)
[2021-02-23] MEDS ORDERED: Lidocaine 1% PF 5 ML VIAL ONE (12:36)
[2021-02-23] MEDS ORDERED: Ondansetron HCl/PF 4 MG/2 ML Vial IVP PRN (13:01)
[2021-02-23] MEDS ORDERED: Promethazine HCl 25 MG/ML VIAL SLOW IVP PRN (13:01)
[2021-02-23] MEDS ORDERED: Promethazine HCl 25 MG/ML VIAL IM PRN (13:01)
[2021-02-23] MEDS ORDERED: hydrALAZINE 20 MG/ML VIAL ONE (13:34)
[2021-02-23] MEDS ORDERED: Metoprolol Tartrate 5 MG/5 ML VIAL ONE (14:27)
[2021-02-23 15:52] LABS: Anion Gap 15 mmol/L (10-20); BUN (Urea Nitrogen) 21 mg/dL (8.4-25.7); Calc. Creatinine Clearance 32 mL/min (70-130); Calcium 9.4 mg/dL (7.8-10.44); Carbon Dioxide 20 mmol/L (23-31); Chloride 112 mmol/L (98-107); Glucose 107 mg/dL (80-115); Potassium 4.4 mmol/L (3.5-5.1); Sodium 143 mmol/L (136-145)
[2021-02-23] MEDS ORDERED: Acetaminophen 650 MG Suppository PR PRN (17:22)
[2021-02-23] MEDS ORDERED: Silver Nitrate Application 1 EACH ONE (17:38)
[2021-02-23] MEDS: Rosuvastatin 20 MG TAB PO SCH (21:01)
[2021-02-23] MEDS: Acetaminophen 650 MG/20.3 ML UDCUP PER TUBE PRN (23:47)
[2021-02-24] MEDS: hydrALAZINE 20 MG/ML VIAL SLOW IVP SCH ×3 (01:12→08:42)
[2021-02-24 05:01] LABS: #Eosinphils 0.2 thou/uL (0.0-0.7); #Lymphocytes 1.3 thou/uL (1.20-3.40); #Monocytes 0.9 thou/uL (0.11-0.59); #Neutrophils 6.1 thou/uL (1.40-6.50); %Basophils 0.2 % (0.0-1.0); %Eosinophils 2.9 % (0.0-10.0); %Lymphocytes 15.5 % (21.0-51.0); %Monocytes 10.4 % (0.0-10.0); %Neutrophils 71.1 % (42.0-75.0); Hemoglobin 13.6 g/dL (14.0-18.0); Mean Corpuscular Hemoglobin 34.3 pg (27.0-31.0); Mean Platelet Volume 7.8 fL (7.4-10.4); Platelet Count 248 thou/uL (130-400); RBC Distribution Width 12.8 % (11.5-14.5); Red Blood Cell (RBC) Count 3.95 mill/uL (4.70-6.10); White Blood Cell (WBC) Count 8.6 thou/uL (4.8-10.8)
[2021-02-24 05:08] LABS: Anion Gap 11 mmol/L (10-20); BUN (Urea Nitrogen) 22 mg/dL (8.4-25.7); Calc. Creatinine Clearance 30 mL/min (70-130); Calcium 9.4 mg/dL (7.8-10.44); Carbon Dioxide 24 mmol/L (23-31); Chloride 110 mmol/L (98-107); Glucose 100 mg/dL (80-115); Potassium 4.4 mmol/L (3.5-5.1); Sodium 141 mmol/L (136-145)
[2021-02-24] MEDS: Cyanocobalamin (Vitamin B-12) 1,000 MCG TAB PO SCH (08:41)
[2021-02-24] MEDS: Cholecalciferol 1,000 UNITS (25 MCG) TAB PO SCH (08:42)
[2021-02-24] MEDS: Metoprolol Tartrate 50 MG TAB PO SCH ×2 (08:42→22:07)
[2021-02-24] MEDS: Labetalol HCl 100 MG/20 ML VIAL SLOW IVP PRN (10:32)
[2021-02-24] MEDS: Apixaban 2.5 MG TAB PO SCH (22:07)
[2021-02-24] MEDS: Rosuvastatin 20 MG TAB PO SCH (22:07)
[2021-02-24] MEDS: Acetaminophen 650 MG/20.3 ML UDCUP PER TUBE PRN (22:28)
[2021-02-25] MEDS: Acetaminophen 650 MG/20.3 ML UDCUP PER TUBE PRN ×2 (03:53→08:30)
[2021-02-25] MEDS: Labetalol HCl 100 MG/20 ML VIAL SLOW IVP PRN (04:06)
[2021-02-25 07:26] VITALS: TEMP 98.8
[2021-02-25] MEDS: Apixaban 2.5 MG TAB PO SCH (08:27)
[2021-02-25] MEDS: Cholecalciferol 1,000 UNITS (25 MCG) TAB PO SCH (08:27)
[2021-02-25] MEDS: Metoprolol Tartrate 50 MG TAB PO SCH (08:28)
[2021-02-25] MEDS: Cyanocobalamin (Vitamin B-12) 1,000 MCG TAB PO SCH (08:29)
[2021-02-25] MEDS ORDERED: Folic Acid 1 MG TAB PER TUBE SCH (09:00)
[2021-02-25 16:23] VITALS: BP 156/91
== END 2021-02-25 16:16 | DRG 65 ==
LOC: ERS 10:25 → ERHOLD 12:11 → 2SE 21:29
PROVIDERS: ADMIT Internal Medicine; ATTEND Internal Medicine
PROC: 0DH68UZ Insertion of Feeding Device into Stomach, Via Natural or Artificial Opening Endoscopic (ICD-10-PCS; principal; 2021-02-23)
DX: I63.9 Cerebral infarction, unspecified (principal); G81.91 Hemiplegia, unspecified affecting right dominant side; N17.9 Acute kidney failure, unspecified; R29.810 Facial weakness; R47.01 Aphasia; I65.23 Occlusion and stenosis of bilateral carotid arteries; E78.5 Hyperlipidemia, unspecified; I12.9 Hypertensive chronic kidney disease with stage 1 through stage 4 chronic kidney disease, or unspecified chronic kidney disease; N18.30 Chronic kidney disease, stage 3 unspecified; R47.1 Dysarthria and anarthria; E55.9 Vitamin D deficiency, unspecified; I16.0 Hypertensive urgency; I48.91 Unspecified atrial fibrillation; D52.9 Folate deficiency anemia, unspecified; Z79.01 Long term (current) use of anticoagulants; Z94.7 Corneal transplant status; Z82.3 Family history of stroke; Z79.82 Long term (current) use of aspirin
CPT/HCPCS: 36415; 36416; 70450; 70496; 70498; 70551; 80048; 80061; 81003; 82550; 82570; 84300; 84484; 85025; 85610; 85730; 87635; 90471; 90732; 93005; 95816; 95819; 95957; G0009; J0360; J0690; J2704; J3480; Q9967; U0003; U0005

== ENCOUNTER 2021-03-28 11:15 | Inpatient (IN) | payer MEDICARE, BC ==
[2021-04-02] MEDS ORDERED: Bupivacaine PF 0.5% 30 ML VIAL ONE (08:12)
[2021-04-02] MEDS ORDERED: Dexamethasone 4 mg/ml Vial ONE (08:12)
[2021-04-02] MEDS ORDERED: EPINEPHrine 1 MG/ML AMP ONE (08:12)
[2021-04-02] MEDS ORDERED: Heparin 5,000 UNITS/ML VIAL ONE (08:12)
[2021-04-02] MEDS ORDERED: Protamine Sulfate 50 MG/5 ML VIAL ONE (08:12)
[2021-04-02] MEDS ORDERED: Fentanyl 100 MCG/2 ML VIAL ONE (08:45)
[2021-04-02] MEDS ORDERED: Phenylephrine 10 MG/ML VIAL ONE (08:46)
[2021-04-02] MEDS ORDERED: Glycopyrrolate 0.2 MG/ML 5 ML SYRINGE ONE ×2 (08:53→09:41)
[2021-04-02] MEDS ORDERED: Lidocaine 1% PF 5 ML VIAL ONE (09:41)
[2021-04-02] MEDS ORDERED: Ondansetron PF 4 MG/2 ML Vial ONE (09:41)
[2021-04-02] MEDS ORDERED: PROPOFOL 200 MG/20 ML VIAL ONE (09:41)
[2021-04-02] MEDS ORDERED: Dexamethasone 20 MG/5 ML VIAL ONE (09:41)
[2021-04-02] MEDS ORDERED: Rocuronium Bromide 10 MG/ML (10ML VIAL) ONE (09:41)
[2021-04-02] MEDS ORDERED: Acetaminophen 325 MG TAB PO PRN (13:39)
[2021-04-02] MEDS ORDERED: Bisacodyl 10 MG SUPP PR PRN (13:39)
[2021-04-02] MEDS ORDERED: Ondansetron PF 4 MG/2 ML Vial IVP PRN (13:39)
[2021-04-02] MEDS ORDERED: Fentanyl 100 MCG/2 ML VIAL SLOW IVP PRN (13:39)
[2021-04-02] MEDS ORDERED: Phenylephrine 40 MG in Sodium Chloride 0.9% 250 ML 246 ML IVPB PRN ×2 (13:39→14:00)
[2021-04-02] MEDS ORDERED: Non-Formulary Item 1 EACH (Acetaminophen [Tylenol] 325 MG Capsule) PER TUBE PRN (13:39)
[2021-04-02] MEDS ORDERED: Nitroglycerin 50 MG/250 ML BOT 250 ML IVPB PRN (13:39)
[2021-04-02] MEDS ORDERED: Scopolamine 1.5 mg/72 hour Patch TD SCH (14:00)
[2021-04-02] MEDS: Sodium Chloride 0.9% 1,000 ML IV SCH (17:59)
[2021-04-02] MEDS: CEFAZOLIN 2 GM in Premix Bag 1 BAG IVPB SCH (18:03)
[2021-04-02] MEDS ORDERED: Melatonin 3 MG TAB PER TUBE SCH (21:00)
[2021-04-02] MEDS: Metoprolol Tartrate 50 MG TAB PER TUBE SCH (21:17)
[2021-04-03] MEDS: Sodium Chloride 0.9% 1,000 ML IV SCH ×2 (00:45→00:51)
[2021-04-03] MEDS: CEFAZOLIN 2 GM in Premix Bag 1 BAG IVPB SCH ×2 (00:47→08:20)
[2021-04-03 03:36] VITALS: BMI 20.3
[2021-04-03 03:48] LABS: Platelet Count 215 thou/uL (130-400)
[2021-04-03 07:18] VITALS: TEMP 98.5
[2021-04-03] MEDS ORDERED: Apixaban 2.5 MG TAB PER TUBE SCH ×2 (08:00→21:00)
[2021-04-03] MEDS: Metoprolol Tartrate 50 MG TAB PER TUBE SCH (08:22)
[2021-04-03 08:23] VITALS: BP 123/75
[2021-04-03] MEDS ORDERED: Cholecalciferol 1,000 UNITS (25 MCG) TAB PER TUBE SCH (09:00)
[2021-04-03] MEDS ORDERED: FLUoxetine HCl 20 MG CAP PER TUBE SCH (09:00)
[2021-04-03] MEDS ORDERED: Lisinopril 10 MG TAB PER TUBE SCH (09:00)
[2021-04-03] MEDS ORDERED: Aspirin Chewable 81 MG TAB PER TUBE SCH (09:00)
[2021-04-03] MEDS ORDERED: Cyanocobalamin (Vitamin B-12) 1,000 MCG TAB PER TUBE SCH (09:00)
[2021-04-03] MEDS ORDERED: Folic Acid 1 MG TAB PER TUBE SCH (09:00)
[2021-04-03] MEDS ORDERED: Polyethylene Glycol 3350 17 GM Packet PER TUBE SCH (09:00)
== END 2021-04-03 11:16 | DRG 38 ==
LOC: SURG A 04-02 07:59 → EDSTATUS 04-02 11:15 → CCU 04-02 17:31
PROVIDERS: ADMIT Thoracic Surgery (Cardiothoracic Vascular Surgery); ATTEND Thoracic Surgery (Cardiothoracic Vascular Surgery)
PROC: 03CH0ZZ Extirpation of Matter from Right Common Carotid Artery, Open Approach (ICD-10-PCS; principal; 2021-04-02)
PROC: 03CM0ZZ Extirpation of Matter from Right External Carotid Artery, Open Approach (ICD-10-PCS; 2021-04-02)
PROC: 03CK0ZZ Extirpation of Matter from Right Internal Carotid Artery, Open Approach (ICD-10-PCS; 2021-04-02)
PROC: 03UH0KZ Supplement Right Common Carotid Artery with Nonautologous Tissue Substitute, Open Approach (ICD-10-PCS; 2021-04-02)
PROC: 03UK0KZ Supplement Right Internal Carotid Artery with Nonautologous Tissue Substitute, Open Approach (ICD-10-PCS; 2021-04-02)
PROC: 03UM0KZ Supplement Right External Carotid Artery with Nonautologous Tissue Substitute, Open Approach (ICD-10-PCS; 2021-04-02)
DX: I65.21 Occlusion and stenosis of right carotid artery (principal); I69.351 Hemiplegia and hemiparesis following cerebral infarction affecting right dominant side; I10 Essential (primary) hypertension; E78.5 Hyperlipidemia, unspecified; I69.320 Aphasia following cerebral infarction; J30.2 Other seasonal allergic rhinitis; F32.9 Major depressive disorder, single episode, unspecified; Z79.899 Other long term (current) drug therapy; Z53.39 Other specified procedure converted to open procedure; Z93.1 Gastrostomy status
CPT/HCPCS: 36415; 76000; 85014; 85018; 85049; 94640; C1725; C1876; C1884; J0171; J0690; J1100; J1642; J1644; J2370; J2405; J2704; J2720; J3010; J7620; S0020

== ENCOUNTER 2021-03-28 12:26 | Outpatient (CLI) | payer MEDICARE, BC ==
[2021-03-28 15:01] LABS: Anion Gap 15 mmol/L (10-20); BUN (Urea Nitrogen) 73 mg/dL (8.4-25.7); Calc. Creatinine Clearance 0 mL/min (70-130); Calcium 9.4 mg/dL (7.8-10.44); Carbon Dioxide 25 mmol/L (23-31); Chloride 100 mmol/L (98-107); Glucose 97 mg/dL (80-115); Potassium 4.9 mmol/L (3.5-5.1); Sodium 135 mmol/L (136-145)
[2021-03-28 15:26] LABS: Hemoglobin 11.4 g/dL (13.5-17.5); Mean Corpuscular HGB CONC 33.6 g/dL (32.0-36.0); Mean Corpuscular Hemoglobin 33.4 pg (27.0-33.0); Mean Corpuscular Volume 99.4 fl (81.2-95.1); Mean Platelet Volume 11.6 fl (7.4-10.4); Platelet Count 258 10x3/uL (150-450); RBC Distribution Width 12.4 % (11.5-14.5); Red Blood Cell (RBC) Count 3.41 10x6/uL (4.32-5.72); White Blood Cell (WBC) Count 9.6 10x3/uL (3.5-10.5)
[2021-03-29 01:13] LABS: SARS-CoV-2 PCR by NAA Not Detected (NotDetected)
== END 2021-03-28 12:27 | disposition home or self-care (01) ==
LOC: LABBT 12:26
PROVIDERS: ATTEND Internal Medicine Rheumatology
DX: Z01.812 Encounter for preprocedural laboratory examination (principal); I65.23 Occlusion and stenosis of bilateral carotid arteries; Z20.822 Contact with and (suspected) exposure to COVID-19
CPT/HCPCS: 80048; 85027; U0003; U0005; 87635

== ENCOUNTER 2021-05-22 14:17 | Inpatient (IN) | payer MEDICARE, BC ==
[2021-05-22 14:39] LABS: Bacteria/HPF None Seen HPF (None Seen); Bilirubin Negative (Negative); Blood, Urine 2+ (Negative); Clarity Extra Turbid (Clear); Glucose, Urine (Dipstick) Normal (Negative); Ketone, Urine Negative (Negative); Leukocyte 500 Leu/uL (Negative); Nitrite Negative (Negative); Protein, Urine (Dipstick) 600 mg/dL (Neg-Trace); RBC/HPF None Seen HPF (0-3); Specific Gravity, Urine 1.015 (1.002-1.036); Squamous Epithelial None Seen HPF (0-3); Urobilinogen Normal mg/dL (Less than 2); WBC/HPF None Seen HPF (0-3); pH, Urine 8.5 (5.0-9.0)
[2021-05-22] MEDS ORDERED: Cefepime 2 GM VIAL ONE (14:51)
[2021-05-22 15:00] LABS: Hemoglobin 9.8 g/dL (14.0-18.0); Mean Corpuscular HGB CONC 32.9 g/dL (32.0-36.0); Mean Corpuscular Hemoglobin 33.1 pg (27.0-31.0); Mean Platelet Volume 8.2 fL (7.4-10.4); Platelet Count 277 thou/uL (130-400); RBC Distribution Width 12.7 % (11.5-14.5); Red Blood Cell (RBC) Count 2.94 mill/uL (4.70-6.10)
[2021-05-22 15:08] LABS: INR-International Normal Ratio 1.6; PTT 28.8 sec (22.9-36.1); Prothrombin Time 19.1 sec (12.0-14.7)
[2021-05-22 15:20] LABS: Band 13 % (5-11); Lymphocytes 6 % (21-51); MDiff Complete? YES; Macrocytosis SLIGHT = 6-15 cells (100X) (0-5/hpf); Monocytes 13 % (0-10); Neutrophil 68 % (42-75); Platelet Morphology Comment Appears Adequate; Polychromasia SLIGHT = 2-3 cells (100X) (0-2/hpf)
[2021-05-22 15:21] LABS: ALT (SGPT) 26 U/L (8-55); AST (SGOT) 43 U/L (5-34); Alkaline Phosphatase 96 U/L (40-110); Anion Gap 16 mmol/L (10-20); BUN (Urea Nitrogen) 107 mg/dL (8.4-25.7); Bilirubin, Total 0.4 mg/dL (0.2-1.2); Calc. Creatinine Clearance 0 mL/min (70-130); Calcium 9.5 mg/dL (7.8-10.44); Carbon Dioxide 23 mmol/L (23-31); Chloride 102 mmol/L (98-107); Globulin 3.1 g/dL (2.4-3.5); Glucose 127 mg/dL (80-115); Potassium 4.2 mmol/L (3.5-5.1); Protein, Total 6.1 g/dL (5.8-8.1); Sodium 137 mmol/L (136-145)
[2021-05-22] MEDS ORDERED: Vancomycin 1 GM/200 ML BAG ONE (15:22)
[2021-05-22 17:05] LABS: SARS-CoV-2 NAA Rapid Test Not Detected (NotDetected)
[2021-05-22] MEDS ORDERED: Bisacodyl 10 MG SUPP PR PRN (18:57)
[2021-05-22] MEDS ORDERED: Acetaminophen 650 MG/20.3 ML UDCUP PER TUBE PRN (19:25)
[2021-05-22] MEDS ORDERED: Acetaminophen 500 MG TAB ONE (20:09)
[2021-05-22] MEDS ORDERED: Scopolamine 1.5 mg/72 hour Patch TD SCH (21:00)
[2021-05-22] MEDS ORDERED: Norepinephrine 8 MG/0.9% NS 250 ML ONE (21:08)
[2021-05-23] MEDS: Apixaban 2.5 MG TAB PER TUBE SCH ×3 (01:26→20:55)
[2021-05-23] MEDS: Melatonin 3 MG TAB PER TUBE SCH ×2 (01:30→20:55)
[2021-05-23] MEDS: Scopolamine 1.5 mg/72 hour Patch TD SCH (06:01)
[2021-05-23 09:04] LABS: Hemoglobin 9.8 g/dL (14.0-18.0); Mean Corpuscular HGB CONC 33.4 g/dL (32.0-36.0); Mean Corpuscular Hemoglobin 33.8 pg (27.0-31.0); Mean Platelet Volume 7.9 fL (7.4-10.4); Platelet Count 217 thou/uL (130-400); RBC Distribution Width 12.9 % (11.5-14.5); Red Blood Cell (RBC) Count 2.89 mill/uL (4.70-6.10); White Blood Cell (WBC) Count 13.1 thou/uL (4.8-10.8)
[2021-05-23 09:13] LABS: Band 26 % (5-11); Lymphocytes 2 % (21-51); MDiff Complete? YES; Macrocytosis SLIGHT = 6-15 cells (100X) (0-5/hpf); Monocytes 9 % (0-10); Neutrophil 63 % (42-75); Platelet Morphology Comment Appears Adequate; Toxic Granulation MODERATE; Vacuoles MODERATE
[2021-05-23 09:17] LABS: ALT (SGPT) 31 U/L (8-55); AST (SGOT) 53 U/L (5-34); Albumin 2.8 g/dL (3.4-4.8); Alkaline Phosphatase 96 U/L (40-110); Anion Gap 16 mmol/L (10-20); BUN (Urea Nitrogen) 107 mg/dL (8.4-25.7); Bilirubin, Total 0.3 mg/dL (0.2-1.2); Calc. Creatinine Clearance 14 mL/min (70-130); Carbon Dioxide 22 mmol/L (23-31); Chloride 107 mmol/L (98-107); Globulin 3.3 g/dL (2.4-3.5); Glucose 125 mg/dL (80-115); Potassium 4.5 mmol/L (3.5-5.1); Protein, Total 6.1 g/dL (5.8-8.1); Sodium 140 mmol/L (136-145)
[2021-05-23] MEDS: Aspirin Chewable 81 MG TAB PER TUBE SCH (10:20)
[2021-05-23] MEDS: Cyanocobalamin (Vitamin B-12) 1,000 MCG TAB PER TUBE SCH (10:21)
[2021-05-23] MEDS: Polyethylene Glycol 3350 17 GM Packet PER TUBE SCH (10:21)
[2021-05-23] MEDS: Folic Acid 1 MG TAB PER TUBE SCH (10:21)
[2021-05-23] MEDS: Cholecalciferol 1,000 UNITS (25 MCG) TAB PER TUBE SCH (10:21)
[2021-05-23] MEDS: FLUoxetine HCl 20 MG/5 ML UDCUP PER TUBE SCH (12:48)
[2021-05-23 13:55] LABS: Vancomycin, Random 12.6 ug/mL (See Comment)
[2021-05-23 13:56] VITALS: BMI 19.7
[2021-05-23] MEDS ORDERED: Cefepime 1 GM in Sodium Chloride 0.9% 100 ML IVPB SCH (14:00)
[2021-05-23] MEDS ORDERED: Vancomycin 1 GM in Premix Bag 1 BAG IVPB SCH (14:30)
[2021-05-23] MEDS ORDERED: Vancomycin HCl 500 MG in Sodium Chloride 0.9% 100 ML IVPB SCH (15:00)
[2021-05-23] MEDS ORDERED: CEFEPIME HCL IN DEXTROSE 5 % 1 GM in Premix Bag 1 BAG IVPB SCH (16:00)
[2021-05-24] MEDS ORDERED: Cipro 250 MG TAB PO SCH (09:00)
[2021-05-24] MEDS: Folic Acid 1 MG TAB PER TUBE SCH (09:17)
[2021-05-24] MEDS: Cholecalciferol 1,000 UNITS (25 MCG) TAB PER TUBE SCH (09:17)
[2021-05-24] MEDS: Cyanocobalamin (Vitamin B-12) 1,000 MCG TAB PER TUBE SCH (09:17)
[2021-05-24] MEDS: Polyethylene Glycol 3350 17 GM Packet PER TUBE SCH (09:17)
[2021-05-24] MEDS: Apixaban 2.5 MG TAB PER TUBE SCH ×2 (09:17→20:02)
[2021-05-24] MEDS: Aspirin Chewable 81 MG TAB PER TUBE SCH (09:17)
[2021-05-24] MEDS: FLUoxetine HCl 20 MG/5 ML UDCUP PER TUBE SCH (09:17)
[2021-05-24] MEDS ORDERED: Labetalol HCl 100 MG/20 ML VIAL SLOW IVP PRN (10:31)
[2021-05-24] MEDS: Sodium Chloride 0.45% 1,000 ML IV SCH (20:02)
[2021-05-24] MEDS: Melatonin 3 MG TAB PER TUBE SCH (20:02)
[2021-05-24] MEDS: Cipro 250 MG TAB PO SCH (20:02)
[2021-05-25] MEDS: Sodium Chloride 0.45% 1,000 ML IV SCH ×3 (03:11→20:58)
[2021-05-25 05:31] LABS: #Eosinphils 0.2 thou/uL (0.0-0.7); #Lymphocytes 0.8 thou/uL (1.20-3.40); #Neutrophils 7.4 thou/uL (1.40-6.50); %Basophils 0.1 % (0.0-1.0); %Eosinophils 1.7 % (0.0-10.0); %Lymphocytes 8.1 % (21.0-51.0); %Monocytes 10.5 % (0.0-10.0); %Neutrophils 79.6 % (42.0-75.0); Hemoglobin 8.6 g/dL (14.0-18.0); Mean Corpuscular HGB CONC 33.2 g/dL (32.0-36.0); Mean Corpuscular Hemoglobin 33.8 pg (27.0-31.0); Mean Platelet Volume 8.7 fL (7.4-10.4); Platelet Count 174 thou/uL (130-400); RBC Distribution Width 13.4 % (11.5-14.5); Red Blood Cell (RBC) Count 2.55 mill/uL (4.70-6.10); White Blood Cell (WBC) Count 9.3 thou/uL (4.8-10.8)
[2021-05-25] MEDS: Cipro 250 MG TAB PO SCH ×2 (05:34→20:48)
[2021-05-25 05:52] LABS: Anion Gap 17 mmol/L (10-20); BUN (Urea Nitrogen) 121 mg/dL (8.4-25.7); Calc. Creatinine Clearance 11 mL/min (70-130); Calcium 9.1 mg/dL (7.8-10.44); Carbon Dioxide 21 mmol/L (23-31); Chloride 106 mmol/L (98-107); Glucose 122 mg/dL (80-115); Potassium 4.1 mmol/L (3.5-5.1); Sodium 140 mmol/L (136-145)
[2021-05-25] MEDS: Folic Acid 1 MG TAB PER TUBE SCH (09:42)
[2021-05-25] MEDS: Cyanocobalamin (Vitamin B-12) 1,000 MCG TAB PER TUBE SCH (09:42)
[2021-05-25] MEDS: Polyethylene Glycol 3350 17 GM Packet PER TUBE SCH (09:42)
[2021-05-25] MEDS: Aspirin Chewable 81 MG TAB PER TUBE SCH (09:42)
[2021-05-25] MEDS: Apixaban 2.5 MG TAB PER TUBE SCH ×2 (09:43→20:48)
[2021-05-25] MEDS: FLUoxetine HCl 20 MG/5 ML UDCUP PER TUBE SCH (09:43)
[2021-05-25] MEDS: Cholecalciferol 1,000 UNITS (25 MCG) TAB PER TUBE SCH (09:43)
[2021-05-25] MEDS: Melatonin 3 MG TAB PER TUBE SCH (20:48)
[2021-05-26 05:35] LABS: #Eosinphils 0.3 thou/uL (0.0-0.7); #Lymphocytes 0.8 thou/uL (1.20-3.40); #Monocytes 1.3 thou/uL (0.11-0.59); #Neutrophils 7.2 thou/uL (1.40-6.50); %Basophils 0.5 % (0.0-1.0); %Eosinophils 3.2 % (0.0-10.0); %Lymphocytes 8.2 % (21.0-51.0); %Neutrophils 75.1 % (42.0-75.0); Hemoglobin 8.5 g/dL (14.0-18.0); Mean Corpuscular HGB CONC 32.4 g/dL (32.0-36.0); Mean Corpuscular Hemoglobin 32.7 pg (27.0-31.0); Mean Platelet Volume 8.8 fL (7.4-10.4); Platelet Count 164 thou/uL (130-400); RBC Distribution Width 13.8 % (11.5-14.5); Red Blood Cell (RBC) Count 2.61 mill/uL (4.70-6.10); White Blood Cell (WBC) Count 9.6 thou/uL (4.8-10.8)
[2021-05-26] MEDS: Cipro 250 MG TAB PO SCH ×2 (05:40→17:36)
[2021-05-26] MEDS: Scopolamine 1.5 mg/72 hour Patch TD SCH (05:41)
[2021-05-26] MEDS: Sodium Chloride 0.45% 1,000 ML IV SCH ×2 (05:41→13:36)
[2021-05-26 05:53] LABS: Anion Gap 17 mmol/L (10-20); BUN (Urea Nitrogen) 108 mg/dL (8.4-25.7); Calc. Creatinine Clearance 12 mL/min (70-130); Calcium 9.2 mg/dL (7.8-10.44); Carbon Dioxide 17 mmol/L (23-31); Chloride 106 mmol/L (98-107); Glucose 104 mg/dL (80-115); Sodium 136 mmol/L (136-145)
[2021-05-26] MEDS ORDERED: Epoetin (ESRD) 20,000 UNITS/ML SC SCH (08:15)
[2021-05-26] MEDS: Aspirin Chewable 81 MG TAB PER TUBE SCH (11:31)
[2021-05-26] MEDS: FLUoxetine HCl 20 MG/5 ML UDCUP PER TUBE SCH (11:31)
[2021-05-26] MEDS: Folic Acid 1 MG TAB PER TUBE SCH (11:32)
[2021-05-26] MEDS: Cyanocobalamin (Vitamin B-12) 1,000 MCG TAB PER TUBE SCH (11:32)
[2021-05-26] MEDS: Cholecalciferol 1,000 UNITS (25 MCG) TAB PER TUBE SCH (11:32)
[2021-05-26] MEDS: Polyethylene Glycol 3350 17 GM Packet PER TUBE SCH (11:32)
[2021-05-26] MEDS: Apixaban 2.5 MG TAB PER TUBE SCH (11:32)
[2021-05-26] MEDS ORDERED: EPOETIN ALFA-EPBX (ESRD) 4,000 UNIT/ML VIAL SC SCH (12:00)
[2021-05-26 12:11] VITALS: BP 142/87; TEMP 97.6
[2021-05-26] MEDS ORDERED: Lorazepam 2 MG/ML VIAL SLOW IVP PRN (12:53)
[2021-05-26] MEDS ORDERED: Metoprolol Tartrate 5 MG/5 ML VIAL IVP SCH (14:00)
[2021-05-26] MEDS ORDERED: Ferrous Sulfate 325 MG TAB PO SCH (17:00)
== END 2021-05-26 20:35 | disposition hospice, inpatient (51) | DRG 698 ==
LOC: ERS 14:17 → ERHOLD 17:38 → IMCU/EMU 05-23 04:54 → 2SE 05-23 13:36
PROVIDERS: ADMIT Internal Medicine; ATTEND Internal Medicine
PROC: 02HV33Z Insertion of Infusion Device into Superior Vena Cava, Percutaneous Approach (ICD-10-PCS; principal; 2021-05-22)
PROC: 3E043XZ Introduction of Vasopressor into Central Vein, Percutaneous Approach (ICD-10-PCS; 2021-05-22)
DX: T83.518A Infection and inflammatory reaction due to other urinary catheter, initial encounter (principal); A41.9 Sepsis, unspecified organism; E43 Unspecified severe protein-calorie malnutrition; Z20.822 Contact with and (suspected) exposure to COVID-19; Z66 Do not resuscitate; N39.0 Urinary tract infection, site not specified; N17.9 Acute kidney failure, unspecified; G93.40 Encephalopathy, unspecified; E55.9 Vitamin D deficiency, unspecified; I48.91 Unspecified atrial fibrillation; R74.01 Elevation of levels of liver transaminase levels; D52.9 Folate deficiency anemia, unspecified; D63.1 Anemia in chronic kidney disease; Y84.6 Urinary catheterization as the cause of abnormal reaction of the patient, or of later complication, without mention of misadventure at the time of the procedure; I73.9 Peripheral vascular disease, unspecified; I12.9 Hypertensive chronic kidney disease with stage 1 through stage 4 chronic kidney disease, or unspecified chronic kidney disease; E78.5 Hyperlipidemia, unspecified; R13.10 Dysphagia, unspecified; N13.9 Obstructive and reflux uropathy, unspecified; F32.9 Major depressive disorder, single episode, unspecified; M81.0 Age-related osteoporosis without current pathological fracture; N18.30 Chronic kidney disease, stage 3 unspecified; Z68.1 Body mass index [BMI] 19.9 or less, adult; I69.951 Hemiplegia and hemiparesis following unspecified cerebrovascular disease affecting right dominant side; I69.991 Dysphagia following unspecified cerebrovascular disease; I69.920 Aphasia following unspecified cerebrovascular disease; Z94.7 Corneal transplant status; Z93.1 Gastrostomy status; Z79.01 Long term (current) use of anticoagulants; Z79.82 Long term (current) use of aspirin; Z79.51 Long term (current) use of inhaled steroids; Z79.899 Other long term (current) drug therapy; Z86.711 Personal history of pulmonary embolism
CPT/HCPCS: 0240U; 36415; 36556; 71045; 80048; 80053; 80202; 81003; 81015; 83605; 85025; 85610; 85730; 87040; 87077; 87086; 87186; 93005; 96361; 96365; 96366; 96367; 99292; J0692; J2060; J3370; Q5105